=== PATIENT | female | born 1990 | race Caucasian/White ===

== ENCOUNTER 2018-09-18 04:42 | Emergency (ER) | payer OTHER ==
[~2018-09-18] VITALS: Ht 167.6 cm; Wt 141.5 kg
[2018-09-18] MEDS ORDERED: ONDANSETRON 4 MG (ZOFRAN) ORAL DISSOLVE TAB PO STA (05:03)
[2018-09-18 05:14] LABS: BILIRUBIN,URINE NEGATIVE (NEGATIVE); CLARITY,URINE CLEAR; COLOR,URINE YELLOW; GLUCOSE, URINE (UA) NEGATIVE (NEGATIVE); KETONES,URINE NEGATIVE (NEGATIVE); LEUKOCYTE ESTERASE ,URINE 1+ (NEGATIVE); NITRITE,URINE NEGATIVE (NEGATIVE); PH,URINE 6.5 (5-9); PROTEIN,URINE TRACE (NEGATIVE); RBC,URINE RARE /HPF; UROBILINOGEN,URINE 0.2 MG/DL (NORMAL)
[2018-09-18 05:15] LABS: SQUAMOUS EPITHELIAL CELL,UR >50 /HPF; WBC,URINE 0-2 /HPF
--- NOTE | 2018-09-18 05:25 | ED Abdominal Pain ---
General Chief Complaint: Abdominal/GI Problems Stated Complaint: ABD PAIN,VOMITING Nursing Triage Note: pt with 1 episode of severe abd pain and vomiting x 2 days and then goes away. pt states tonight had 2 episodes. Sepsis Screen: No Definite Risk Source of Information: Patient Exam Limitations: No Limitations History of Present Illness Date Seen by Provider: Sep 18, 2018 Time Seen by Provider: 05:00 Timing/Duration: 24 Hours Severity/Quality: Moderate Location: Epigastric Radiation: No Radiation Activities at Onset: None Associated Symptoms: Back Pain, Heartburn, Nausea/Vomiting Allergies and Home Medications Allergies Coded Allergies: No Known Drug Allergies (Unverified , 09/18/18) Patient Home Medication List Home Medication List Reviewed: Yes Review of Systems Review of Systems Constitutional: see HPI EENTM: See HPI Respiratory: See HPI Cardiovascular: See HPI Gastrointestinal: See HPI Genitourinary: See HPI Musculoskeletal: see HPI Skin: see HPI Psychiatric/Neurological: See HPI Hematologic/Lymphatic: See HPI All Other Systems Reviewed Negative Unless Noted: Yes Past Wawythl-Tcebzq-Srdgdl Hx Patient Social History Alcohol Use: Denies Use Recreational Drug Use: No Smoking Status: Never a Smoker 2nd Hand Smoke Exposure: No Recent Foreign Travel: No Contact w/Someone Who Travel: No Recent Infectious Disease Expo: No Recent Hopitalizations: No Physical Abuse: No Sexual Abuse: No Mistreated: No Fear: No Seasonal Allergies Seasonal Allergies: No Past Medical History Surgeries: No Respiratory: No Cardiac: No Neurological: No Genitourinary: No Gastrointestinal: No Musculoskeletal: No Endocrine: No HEENT: No Cancer: No Psychosocial: No Integumentary: No Blood Disorders: No Adverse Reaction/Blood Tranf: No Physical Exam Vital Signs Vital Signs - First Documented 09/18/18 05:06 Temp 97.8 Pulse 108 Resp 18 B/P (MAP) 174/131 (145) Pulse Ox 96 O2 Delivery Room Air Capillary Refill : Less Than 3 Seconds Height/Weight/BMI Height: 5'6.00" Weight: 312lbs. oz. 141.850606yo; BMI Method:Stated General Appearance: WD/WN HEENT: PERRL/EOMI, normal ENT inspection Neck: supple Respiratory: chest non-tender, lungs clear Cardiovascular: normal peripheral pulses, regular rate, rhythm Gastrointestinal: normal bowel sounds, tenderness (EPIGASTRIC) Extremities: normal range of motion Back: normal inspection Focused Exam Sepsis Stage: Ruled Out Progress/Results/Core Measures Results/Orders Lab Results Laboratory Tests Test 09/18/18 04:55 Range/Units Urine Color YELLOW Urine Clarity CLEAR Urine pH 6.5 5-9 Urine Specific [place] <1.005 1.016-1.022 Urine Protein TRACE NEGATIVE Urine Glucose (UA) NEGATIVE NEGATIVE Urine Ketones NEGATIVE NEGATIVE Urine Nitrite NEGATIVE NEGATIVE Urine Bilirubin NEGATIVE NEGATIVE Urine Urobilinogen 0.2 NORMAL MG/DL Urine Leukocyte Esterase 1+ H NEGATIVE Urine RBC (Auto) TRACE H NEGATIVE Urine RBC RARE /HPF Urine WBC 0-2 /HPF Urine Squamous Epithelial Cells >50 H /HPF Urine Crystals NONE /LPF Urine Bacteria NONE /HPF Urine Casts NONE /LPF Urine Mucus NEGATIVE /LPF Urine Culture Indicated NO Urine Test NEGATIVE NEGATIVE My Orders Orders - RONA AGUILERA DO Ua Culture If Indicated (09/18/18 05:03) Hcg,Qualitative Urine (09/18/18 05:03) Ondansetron Oral Dissolve Tab (Zofran (09/18/18 05:03) Famotidine Tablet (Pepcid Tablet) (09/18/18 05:30) Antacid Suspension (Mylanta Suspension (09/18/18 05:30) Cbc With Automated Diff (09/18/18 05:47) Comprehensive Metabolic Panel (09/18/18 05:47) Lipase (09/18/18 05:47) Morphine Injection (Morphine Injection (09/18/18 05:47) Prochlorperazine Injection (Compazine In (09/18/18 06:00) Ct Abdomen/Pelvis W (09/18/18 05:47) Medications Given in ED Current Medications Medications Dose Ordered Sig/Meagan Route Start Time Stop Time Status Last Admin Dose Admin Al Hydrox/Mg Hydrox/Simethicone 30 ml ONCE ONCE PO 09/18/18 05:30 09/18/18 05:31 DC 09/18/18 05:25 30 ML Famotidine 20 mg ONCE ONCE PO 09/18/18 05:30 09/18/18 05:31 DC 09/18/18 05:25 20 MG Vital Signs/I&O 09/18/18 05:06 Temp 97.8 Pulse 108 Resp 18 B/P (MAP) 174/131 (145) Pulse Ox 96 O2 Delivery Room Air Blood Pressure Mean: 145 Departure Communication (Admissions) Severe left lower quadrant/left flank pain associated with bowel movement. No fever chills, sweats. No urinary frequency urgency or burning. No hematuria. CT , lab nondiagnostic. Pain fully resolved with treatment and did not recur while in the emergency department. Patient has up had dialysis scheduled in the next 24 hours. Will discharge home with watchful waiting and recommend PCP follow-up. Impression Primary Impression: Lower abdominal pain Disposition: HOME, SELF-CARE Condition: Improved Departure-Patient Inst. Decision time for Depature: 05:53 Referrals: NO,LOCAL PHYSICIAN (PCP) Primary Care Physician Patient Instructions: Acute Abdomen (Belly Pain), Adult (DC) Add. Discharge Instructions: Resume normal vacations activities. Follow-up with your dialysis session as scheduled. Return to ED if new or worsening symptoms. All discharge instructions reviewed with patient and/or family. Voiced understanding. RONA AGUILERA DO Sep 18, 2018 05:25
[2018-09-18] MEDS ORDERED: FAMOTIDINE 20 MG (PEPCID) TABLET PO ONE (05:30)
[2018-09-18] MEDS ORDERED: ANTACID SUSP 30 ML UDC (MYLANTA) PO ONE (05:30)
[2018-09-18] MEDS ORDERED: morphine INJ 10 MG/ML 1ML (SYR OR VIAL) IVP STA (05:47)
[2018-09-18] MEDS ORDERED: IOHEXOL 350 MG/ML 100 ML (OMNIPAQUE 350) VIAL IV ONE (06:00)
[2018-09-18] MEDS ORDERED: CATHETER FLUSH 10 ML SYR IV PRN (06:00)
[2018-09-18] MEDS ORDERED: PROCHLORPERAZINE 10 MG/2ML INJ (COMPAZINE) IV ONE (06:00)
[2018-09-18 06:11] LABS: BASOPHILS % (AUTO) 1 % (0-10); EOSINOPHILS % (AUTO) 1 % (0-10); HEMATOCRIT 47 % (35-52); LYMPHOCYTES % (AUTO) 13 % (12-44); MEAN CORPUSCULAR HEMOGLOBIN 29 PG (25-34); MEAN CORPUSCULAR HGB CONC 34 G/DL (32-36); MEAN CORPUSCULAR VOLUME 86 FL (80-99); MEAN PLATELET VOLUME 10.1 FL (7.4-10.4); MONOCYTES % (AUTO) 5 % (0-12); NEUTROPHILS # (AUTO) 9.9 X 10^3 (1.8-7.8); NEUTROPHILS % (AUTO) 81 % (42-75); PLATELET COUNT 276 10^3/uL (130-400); RED CELL DISTRIBUTION WIDTH 12.6 % (10.0-14.5); WHITE BLOOD COUNT 12.3 10^3/uL (4.3-11.0)
[2018-09-18 06:12] LABS: BASOPHILS # (AUTO) 0.1 10^3/uL (0.0-0.1); EOSINOPHILS # (AUTO) 0.1 10^3/uL (0.0-0.3); LYMPHOCYTES # (AUTO) 1.6 X 10^3 (1.0-4.0); MONOCYTES # (AUTO) 0.6 X 10^3 (0.0-1.0)
[2018-09-18 06:33] LABS: ALANINE AMINOTRANSFERASE 463 U/L (0-55); ALKALINE PHOSPHATASE 323 U/L (40-136); BILIRUBIN,TOTAL 1.2 MG/DL (0.1-1.0); BUN/CREATININE RATIO 20; CALCIUM 9.6 MG/DL (8.5-10.1); CARBON DIOXIDE 19 MMOL/L (21-32); CHLORIDE 106 MMOL/L (98-107); CREATININE SERUM 0.86 MG/DL (0.60-1.30); GFR ESTIMATED > 60; GLUCOSE 174 MG/DL (70-105); POTASSIUM 3.6 MMOL/L (3.6-5.0); SODIUM 142 MMOL/L (135-145)
[2018-09-18 06:34] LABS: ALBUMIN 4.5 GM/DL (3.2-4.5); LIPASE 1351 U/L (8-78)
[2018-09-18] MEDS ORDERED: PIPERACILLIN/TAZOBACTAM (BULK) 4.5 GM in NS (IVPB) 100 ML IV ONE (06:45)
[2018-09-18] MEDS ORDERED: NS IV 1000 ML 1,000 ML IV SCH (07:00)
[2018-09-18] MEDS ORDERED: morphine INJ 10 MG/ML 1ML (SYR OR VIAL) IVP PRN (07:00)
[2018-09-18] MEDS ORDERED: PIPERACILLIN/TAZO 4.5 GM VIAL (ZOSYN) IV ONE (07:04)
[2018-09-18] MEDS ORDERED: NS (IVPB) 100 ML ONE (07:04)
--- NOTE | 2018-09-18 07:23 | Diagnostic Imaging Report ---
PROCEDURE: CT abdomen and pelvis with contrast. TECHNIQUE: Multiple contiguous axial images were obtained through the abdomen and pelvis after administration of intravenous contrast. Auto Exposure Controls were utilized during the CT exam to meet ALARA standards for radiation dose reduction. INDICATION: Right upper quadrant abdominal pain. COMPARISON: None FINDINGS: Included portions of the lung bases are clear. CT abdomen: There is trace free fluid within the upper abdomen. There is also mild to moderate abnormal stranding of the peripancreatic fat. Findings are concerning for acute pancreatitis. There is normal enhancement of the pancreatic parenchyma. There is no evidence of pancreatic necrosis. No focal loculated fluid collections are seen to suggest pseudocyst. Multiple gallstones are noted layering within the dependent portion of the gallbladder. Common bile duct may be slightly prominent at 7 mm. There is also suggestion of punctate hyperdense focus within this portion of the gallbladder concerning for choledocholithiasis (image 38, series 2). Gallbladder measures 3.7 cm in diameter, which is within normal limits. Kidneys, adrenal glands, spleen, and liver have a normal CT appearance. There is no free air within the abdomen. No abnormal mesenteric or retroperitoneal adenopathy is seen. Small bowel loops are nondistended. Normal appendix is identified. Bony structures show no acute abnormalities. CT pelvis: Urinary bladder is decompressed and unopacified. There is small amount of free fluid within the pelvis as well. There is no loculated fluid collection or free air. No abnormal lymph nodes are seen. Bony structures show no acute abnormalities. IMPRESSION: 1. Probable acute pancreatitis. Presence of cholelithiasis and potential choledocholithiasis also raises concern for possible gallstone pancreatitis. Correlation with MRCP may be of benefit. 2. No evidence of pancreatic necrosis . 3. Small amount of free fluid within the upper abdomen and pelvis, but no loculated fluid collection to suggest pseudocyst or abscess. Dictated by: Dictated on workstation # [id number]
[2018-09-18 07:28] VITALS: BP 116/68
[2018-09-18 08:30] VITALS: BP 138/60
== END 2018-09-18 08:43 | disposition short-term general hospital (02) ==
LOC: ER FS 04:45
DX: R10.32 Left lower quadrant pain (principal)
CPT/HCPCS: 36415; 74177; 80053; 81000; 83690; 84703; 85025